=== PATIENT | female | born 1940 | race Caucasian/White ===

== ENCOUNTER 2017-06-04 09:57 | Outpatient (CLI) | payer MEDICARE, BC ==
--- NOTE | 2017-06-04 13:19 | MRI ---
MRI THORACIC SPINE NONCONTRAST: History: Back pain. Radiation to left shoulder. FINDINGS: The spinal cord throughout the cervical levels has a normal appearance without evidence of compressio n, expansion, or abnormal signal. Vertebral body height and alignment are maintained. Scattered heman giomas are apparent within the bone marrow. Disc hydration is maintained. The central canal and neura l foramina are patent. Images including the abdomen show large lobular cysts arising from the cortex of the liver. IMPRESSION: 1. No abnormalities of the thoracic spine are demonstrated to explain back pain. POS: [facility]
== END 2017-06-04 09:58 | disposition home or self-care (01) ==
LOC: SCSMRI 09:57
PROVIDERS: ATTEND Nurse Practitioner Family
DX: M54.14 Radiculopathy, thoracic region (principal)
CPT/HCPCS: 72146

== ENCOUNTER 2017-12-31 05:22 | Observation (INO) | payer MEDICARE, BC ==
[2017-12-31 05:55] LABS: #Eosinphils 0.2 thou/uL (0.0-0.7); #Lymphocytes 2.8 thou/uL (1.20-3.40); %Basophils 0.6 % (0.0-1.0); %Eosinophils 2.9 % (0.0-10.0); %Lymphocytes 40.1 % (21.0-51.0); %Monocytes 14.7 % (0.0-10.0); %Neutrophils 41.8 % (42.0-75.0); Hemoglobin 14.6 g/dL (12.0-16.0); Mean Corpuscular HGB CONC 34.2 g/dL (32.0-36.0); Mean Corpuscular Hemoglobin 30.9 pg (27.0-31.0); Mean Corpuscular Volume 90.3 fL (78.0-98.0); Mean Platelet Volume 7.7 fL (7.4-10.4); Platelet Count 176 thou/uL (130-400); RBC Distribution Width 11.8 % (11.5-14.5); Red Blood Cell (RBC) Count 4.71 mill/uL (4.20-5.40); White Blood Cell (WBC) Count 7.1 thou/uL (4.8-10.8)
[2017-12-31 06:06] LABS: INR-International Normal Ratio 1.2; Prothrombin Time 14.8 SEC (12.0-14.7)
[2017-12-31 06:07] LABS: PTT 29.7 SEC (22.9-36.1)
[2017-12-31 06:16] LABS: ALT (SGPT) 34 U/L (8-55); AST (SGOT) 28 U/L (5-34); Alkaline Phosphatase 81 U/L (40-150); Anion Gap 11 mmol/L (10-20); BUN (Urea Nitrogen) 17 mg/dL (9.8-20.1); Bilirubin, Total 0.4 mg/dL (0.2-1.2); CK (CPK) 68 U/L (29-168); Calc. Creatinine Clearance 0 mL/min (70-130); Calcium 8.5 mg/dL (7.8-10.44); Carbon Dioxide 23 mmol/L (23-31); Chloride 110 mmol/L (98-107); Estimated GFR-MDRD 59; Globulin 2.7 g/dL (2.4-3.5); Glucose 143 mg/dL (83-110); Lipase 18 U/L (8-78); Potassium 3.5 mmol/L (3.5-5.1); Protein, Total 6.7 g/dL (6.0-8.3); Sodium 140 mmol/L (136-145)
[2017-12-31] MEDS ORDERED: Ondansetron HCl/PF 4 MG/2 ML Vial ONE (06:17)
[2017-12-31 06:20] LABS: Troponin I Less than 0.010 ng/mL (< 0.028)
--- NOTE | 2017-12-31 07:45 | CT ---
PRELIMINARY REPORT/[facility]/EMERGENTY AFTER-HOURS PROCEDURE CT Cervical Spine Without Intravenous Contrast EXAM DATE/TIME: Exam ordered 12/31/2017 5:49 AM CLINICAL HISTORY: 77 years old, female; Injury or trauma; Fall; Initial encounter; Abrasion; Patient HX: No previous ex ams; Er 3; F77 reports to ed via ems C/O syncopal episode. Ems reports x40 minutes ago patient went t o restroom and had a witnessed syncopal episode. Ems reports patient fell and hit head on wall about x2 feet in front of her. Pt reports loc, unaware of how long it lasted. Pt denies cp at time of syncopal episode. TECHNIQUE: Axial computed tomography images of the cervical spine without intravenous contrast. Coronal and sagittal reformatted images were created and reviewed. COMPARISON: No relevant prior studies available. FINDINGS: Vertebrae: No acute cervical spine fracture is demonstrated. Discs/spinal canal/neural foramina: The vertebral foramen are grossly intact. No spinal canal stenosi s. Soft tissues: Normal. Lung apices: Unremarkable as visualized. IMPRESSION: No acute cervical spine fracture is demonstrated. Thank you for allowing us to participate in the care of your patient. Dictated and Authenticated by: Deepak Light MD 12/31/2017 6:07 AM Central Time ([place] & [place]) CT CERVICAL SPINE: FINAL REPORT: I agree with the preliminary report given by Dr. Deepak Light of [facility]. POS: [facility]
--- NOTE | 2017-12-31 07:47 | CT ---
PRELIMINARY REPORT/[facility]/EMERGENTY AFTER-HOURS PROCEDURE CT Maxillofacial Without Intravenous Contrast EXAM DATE/TIME: Exam ordered 12/31/2017 5:47 AM CLINICAL HISTORY: 77 years old, female; Injury or trauma; Fall; Initial encounter; Abrasion; Forehead; Patient HX: No p revious exams; Er 3; F77 reports to ed via ems C/O syncopal episode. Ems reports x40 minutes ago gab ent went to restroom and had a witnessed syncopal episode. Ems reports patient fell and hit head on wall about x2 feet in front of her. Pt reports loc, unaware of how long it lasted. Pt denies cp at time of syncopal episode. TECHNIQUE: Axial computed tomography images of the face without intravenous contrast. Coronal and sagittal reformatted images were created and reviewed. COMPARISON: No relevant prior studies available. FINDINGS: Bones/joints: There is acute inferior RIGHT nasal bone fracture with mild posterior angulation and ov erlying soft tissue swelling. Soft tissues: There is frontal scalp soft tissue hematoma measuring approximately 3 x 1 cm. Orbits: Normal. Sinuses: Normal. No air-fluid levels. IMPRESSION: 1. There is acute inferior RIGHT nasal bone fracture with mild posterior angulation and overlying sof t tissue swelling. 2. There is frontal scalp soft tissue hematoma measuring approximately 3 x 1 cm. Thank you for allowing us to participate in the care of your patient. Dictated and Authenticated by: Deepak Light MD 12/31/2017 6:13 AM Central Time ([place] & [place]) CT FACIAL BONES WITH CORONAL AND SAGITTAL REFORMATIONS: FINAL REPORT: I agree with the preliminary report given by Dr. eDepak Light of [facility]. POS: [facility]
--- NOTE | 2017-12-31 07:48 | CT ---
PRELIMINARY REPORT/[facility]/EMERGENTY AFTER-HOURS PROCEDURE CT Head Without Intravenous Contrast EXAM DATE/TIME: Exam ordered 12/31/2017 5:51 AM CLINICAL HISTORY: 77 years old, female; Injury or trauma; Fall; Initial encounter; Abrasion; Face; Patient HX: No previ ous exams; Er 3; F77 reports to ed via ems C/O syncopal episode. Ems reports x40 minutes ago patient went to restroom and had a witnessed syncopal episode. Ems reports patient fell and hit head on wall about x2 feet in front of her. Pt reports loc, unaware of how long it lasted. Pt denies cp at time of syncopal episode. TECHNIQUE: Axial computed tomography images of the head/brain without intravenous contrast. COMPARISON: No relevant prior studies available. FINDINGS: Brain: Normal. No hemorrhage. No significant white matter disease. No edema. Ventricles: Normal. No ventriculomegaly. Bones/joints: There is acute fracture of the nasal bone with mild posterior displacement. Soft tissues: There is a 2.9 x 0.7 cm frontal scalp hematoma. Sinuses: Unremarkable as visualized. No acute sinusitis. Mastoid air cells: Unremarkable as visualized. No mastoid effusion. IMPRESSION: 1. No acute intracranial hemorrhage. 2. There is acute fracture of the nasal bone with mild posterior displacement. Thank you for allowing us to participate in the care of your patient. Dictated and Authenticated by: Deepak Light MD 12/31/2017 6:10 AM Central Time ([place] & [place]) FINAL REPORT CT BRAIN WITHOUT CONTRAST: I agree with the preliminary report given by Dr. Deepak Light of [facility]. POS: [facility]
[2017-12-31] MEDS ORDERED: Ondansetron ODT 4 MG TAB PO PRN (08:45)
[2017-12-31] MEDS ORDERED: hydrALAZINE 20 MG/ML VIAL SLOW IVP PRN (08:45)
[2017-12-31] MEDS ORDERED: Senokot 8.6 MG TAB PO PRN (08:45)
[2017-12-31] MEDS ORDERED: Zolpidem Tartrate 5 MG TAB PO PRN (08:45)
[2017-12-31] MEDS ORDERED: Mag-Al 1200 mg/1200 mg/30 ML UDCUP PO PRN (08:45)
[2017-12-31] MEDS ORDERED: Chloraseptic Spray 180 ml Bottle PO PRN (08:45)
[2017-12-31] MEDS ORDERED: Milk Of Magnesia 30 ML UDCUP PO PRN (08:45)
[2017-12-31] MEDS ORDERED: Sodium Chloride 0.65% Nasal 44 ML BOT EA NARE PRN (08:45)
[2017-12-31] MEDS ORDERED: Eucerin (Mineral Oil/Petrolatum,White) 30 gm Jar TOP PRN (08:45)
[2017-12-31] MEDS ORDERED: Ondansetron HCl/PF 4 MG/2 ML Vial IVP PRN (08:45)
[2017-12-31] MEDS ORDERED: Loratadine 10 MG TAB PO PRN (08:45)
[2017-12-31] MEDS ORDERED: Artificial Tears 18 DROP/0.9 ML EA EYE PRN (08:45)
[2017-12-31] MEDS ORDERED: Loperamide HCl 2 MG CAP PO PRN (08:45)
[2017-12-31] MEDS ORDERED: Diabetic Tussin 200 MG/10 ML UDCUP PO PRN (08:45)
[2017-12-31] MEDS ORDERED: HYDROcodone/Acetaminophen 5/325 mg Tablet PO PRN (08:45)
[2017-12-31 09:54] LABS: CKMB 1.9 ng/mL (0-6.6)
[2017-12-31 10:00] LABS: Troponin I Less than 0.010 ng/mL (< 0.028)
[2017-12-31] MEDS: Sodium Chloride 0.9% 1,000 ML IV SCH ×2 (10:33→23:57)
[2017-12-31] MEDS: Famotidine 20 MG TAB PO SCH ×2 (10:33→21:02)
[2017-12-31] MEDS ORDERED: ALPRAZolam 0.25 MG TAB PO PRN (10:46)
--- NOTE | 2017-12-31 11:17 | HP ---
PRIMARY CARE PHYSICIAN: Dr. Donnie Veloz. REASON FOR ADMISSION: Syncope. HISTORY OF PRESENT ILLNESS: A 77-year-old female who has chronic tinnitus and intermittent vertigo s ymptoms which is related with position change, who was experiencing diarrhea since Friday during nigh t time. On Friday, patient ate Polish food in a restaurant and during nighttime she ate frozen pizz a. The patient's was also experiencing mild upset in stomach, but patient started having exp losive recurrent diarrhea during Friday night. Patient did not have any pus or blood in stool. She was having crampy abdominal pain. She did not have any fever or chills. She completely cleared out on Friday night. On Friday, she was not experiencing any diarrhea, but she was feeling weak. She wa s only able to drink liquids, so she did not eat on Friday. Friday, she started eating afternoon an d she started having diarrhea again. Last night, patient woke up for a bowel movement and she was fe eling dizzy, tunnel vision and black. She was feeling that she is going to pass out, but it was very rapid. She was not able to hold and she fell down and injured over nasal bruits. Per patient, she passed out for a few seconds. She did not have any shaking movement. She did not have any prior brent st pain, palpitation or after awakening, she was not experiencing any chest pain or palpitations. Sh vinay was having nasal bridge pain. She had minor bleeding from that area, but no epistaxis. She denied any headaches. She denies any focal motor or sensory symptoms. The patient's called paramedics and patient was brought to emergency room. Patient denies an y UTI symptoms. She denies any fever or chills. She denies any similar problem in past. REVIEW OF SYSTEMS: The following complete review of systems was negative, unless otherwise mentioned in the HPI or below: Constitutional: Weight loss or gain, ability to conduct usual activities. Skin: Rash, itching. Eyes: Double vision, pain. ENT/Mouth: Nose bleeding, neck stiffness, pain, tenderness. Cardiovascular: Palpitations, dyspnea on exertion, orthopnea. Respiratory: Shortness of breath, wheezing, cough, hemoptysis, fever or night sweats. Gastrointestinal: Poor appetite, abdominal pain, heartburn, nausea, vomiting, constipation, or diarr hea. Genitourinary: Urgency, frequency, dysuria, nocturia. Musculoskeletal: Pain, swelling. Neurologic/Psychiatric: Anxiety, depression. Allergy/Immunologic: Skin rash, bleeding tendency. Please see my HPI for pertinent positive and negative. All other review of systems reviewed and nega tive except as mentioned in the HPI. ALLERGIES: MACROBID. CURRENT HOME MEDICATIONS: Amlodipine 5 mg p.o. daily, vitamin D3 1000 units p.o. daily, Pristiq 50 m g p.o. daily, conjugated estrogen 0.5 mg p.o. daily, Synthroid 50 mcg p.o. daily, Toprol-XL 100 mg p. o. daily, omeprazole 20 mg p.o. daily, pravastatin 40 mg p.o. at bedtime, Coenzyme Q10 100 mg p.o. da brandon, Xanax 0.25 mg p.o. t.i.d. p.r.n. EMERGENCY ROOM COURSE: Patient was given 1 liter IV fluid and Zofran. PAST MEDICAL HISTORY: Hypertension, dyslipidemia, benign positional vertigo, hypothyroidism, gastroe sophageal reflux disease. PAST PSYCHIATRIC HISTORY: Anxiety and depression. PAST SURGICAL HISTORY: Hysterectomy, bilateral ankle surgery, tonsillectomy, cataract surgery and ov concepcion cyst removed. SOCIAL HISTORY: Patient is and lives at home with her . No history of tobacco, alcoh ol or illicit drug abuse. FAMILY HISTORY: No strong family history of premature coronary artery disease, stroke or cancer. PHYSICAL EXAMINATION: VITAL SIGNS: On arrival, blood pressure 149/82, pulse 66, respiratory rate 12, temperature 98.1, sat uration 98% on room air, weight 58.9 kilograms. GENERAL: Patient is currently alert, awake, no obvious acute distress. HEAD: Normocephalic though patient does have bruits over frontal head. EYES: Pupils round, reactive to light. Extraocular muscle intact. No nystagmus. ENT: The patient does have nasal fissure. Laceration about 1 cm. No epistaxis, ear examination nor mal. Throat examination normal. NECK: Supple, no JVD, no thyromegaly, no carotid bruit. LUNGS: Clear to auscultation without any rhonchi or rales. CARDIAC: S1 and S2 regular without any murmur. ABDOMEN: Soft, bowel sounds present, nontender, nondistended. No organomegaly, no mass, no suprapub ic tenderness. BACK: Examination unremarkable, no CVA tenderness. EXTREMITIES: Upper extremity passive movements of all joints are normal. Lower extremities: No lino ma. Good distal pulsation. SKIN: No skin rash. HEMATOLOGICAL SYSTEM: No lymphadenopathy. PSYCHIATRIC: Normal affect. NEUROLOGIC: The patient is alert, oriented x3. Cranial nerves II-XII intact. Motor and sensation w ithin normal limits, plantar bilateral flexor. PSYCHIATRIC: Normal affect. IMAGING DATA AND SIGNIFICANT LABORATORY DATA: EKG showing normal sinus rhythm within normal limits. CT brain showing no acute intracranial process, but it showed acute fracture of nasal bone with mild posterior displacement. Facial bone CT scan showed acute right inferior nasal bone fracture. CT ce rvical spine negative for any fracture or dislocation. CBC: WBC 7.1, hemoglobin 14.6, platelet 176. INR 1.2. BMP: Sodium 140, potassium 3.5, chloride 110, carbon dioxide 23, BUN 17, creatinine 0.93 , glucose 143, calcium 8.5. LFT: AST 28, ALT 34, alkaline phosphatase 81, albumin 4.0, lipase 18. Cardiac enzymes negative x2. Lactic acid 1.4. ASSESSMENT AND PLAN/IMPRESSION: 1. Syncope, most likely orthostatic hypotension due to volume depletion secondary to diarrhea. Othe r etiology needs to be excluded. We will keep on telemetry floor. We will check orthostatic vitals to rule out orthostatic hypotension. We will hold on antihypertensive medication unless blood pressu re is very high. We will continue with IV fluid with NS at 100 mL per hour. Telemetry monitoring to rule out any arrhythmia. Echocardiography to assess ejection fraction and other structural abnormal ity. PT evaluation. 2. Diarrhea, most likely viral gastroenteritis versus food born related infection. We will check st ool for infection workup. At this point, no need of antibiotic therapy. We will provide probiotics. The patient needs hydration and supportive treatment. 3. Chronic dizziness with tinnitus, suspecting benign positional vertigo as well. We will continue with Antivert 25 mg t.i.d. p.r.n. 4. Hypertension. Blood pressure is going up and that is why we will start antihypertensive medicati on with amlodipine 5 mg p.o. daily and Toprol-XL 100 mg p.o. daily. 5. Gastroesophageal reflux disease. We will continue Pepcid 20 mg p.o. b.i.d. 6. Dyslipidemia. Continue pravastatin 40 mg p.o. at bedtime. 7. Anxiety and depression. Continue Xanax 0.25 mg t.i.d. p.r.n. and Pristiq 50 mg p.o. daily. 8. Hypothyroidism. Continue 50 mcg p.o. daily. 9. Deep venous thrombosis prophylaxis not needed because we are expecting discharge in 24 hours. 10. Gastrointestinal prophylaxis, Pepcid 20 mg p.o. b.i.d. 11. Code status: The patient is FULL CODE. Patient's is surrogate decision maker. DISPOSITION AND PLAN: Based on clinical course.
[2017-12-31 12:39] LABS: CKMB 2.6 ng/mL (0-6.6); Troponin I Less than 0.010 ng/mL (< 0.028)
[2017-12-31 15:14] LABS: Bilirubin Negative (Negative); Blood, Urine Negative (Negative); Clarity CLEAR (Clear); Glucose, Urine (Dipstick) Negative (Negative); Leukocyte Trace (Negative); Nitrite Negative (Negative); Protein, Urine (Dipstick) Negative (Neg-Trace); Specific Gravity, Urine 1.005 (1.002-1.036); Urobilinogen 0.2 mg/dL (0.2-1.0); pH, Urine 5.5 (5.0-9.0)
[2017-12-31 15:17] LABS: Bacteria/HPF None Seen HPF (None Seen); Hyaline Casts/LPF 0-3 HYALINE CAST LPF (0-3 Hyaline); Pathc Cast-AUWi Flag 0.29 (0-2.49); Squamous Epithelial 0-3 HPF (0-3); WBC/HPF 0-3 HPF (0-3)
[2017-12-31 15:22] LABS: Yeast-AUWi Flag 37.6 (0-25.0)
[2017-12-31 15:29] LABS: RBC/HPF None Seen HPF (0-3); Yeast-All Forms None Seen HPF (None Seen)
[2017-12-31] MEDS: Acetaminophen 325 MG TAB PO PRN ×2 (15:56→21:02)
[2017-12-31] MEDS ORDERED: Pravastatin Sodium 40 MG TAB PO SCH (21:00)
[2017-12-31] MEDS ORDERED: Atorvastatin Calcium 10 MG TAB PO SCH (21:00)
[2017-12-31] MEDS: Meclizine HCl 25 MG TAB PO PRN (21:02)
[2018-01-01 05:39] LABS: #Basophils 0.1 thou/uL (0.0-0.2); #Eosinphils 0.1 thou/uL (0.0-0.7); #Lymphocytes 2.2 thou/uL (1.20-3.40); #Monocytes 0.7 thou/uL (0.11-0.59); #Neutrophils 3.1 thou/uL (1.40-6.50); %Basophils 1.1 % (0.0-1.0); %Eosinophils 1.9 % (0.0-10.0); %Lymphocytes 35.7 % (21.0-51.0); %Monocytes 11.1 % (0.0-10.0); %Neutrophils 50.3 % (42.0-75.0); Hemoglobin 13.4 g/dL (12.0-16.0); Mean Corpuscular HGB CONC 32.8 g/dL (32.0-36.0); Mean Corpuscular Hemoglobin 29.7 pg (27.0-31.0); Mean Corpuscular Volume 90.7 fL (78.0-98.0); Mean Platelet Volume 8.1 fL (7.4-10.4); Platelet Count 176 thou/uL (130-400); White Blood Cell (WBC) Count 6.1 thou/uL (4.8-10.8)
[2018-01-01] MEDS ORDERED: Levothyroxine Sodium 50 MCG TAB PO SCH (06:00)
[2018-01-01 06:22] LABS: Anion Gap 11 mmol/L (10-20); BUN (Urea Nitrogen) 7 mg/dL (9.8-20.1); Calc. Creatinine Clearance 82 mL/min (70-130); Calcium 8.5 mg/dL (7.8-10.44); Carbon Dioxide 21 mmol/L (23-31); Chloride 113 mmol/L (98-107); Estimated GFR-MDRD 79; Glucose 89 mg/dL (83-110); Potassium 3.5 mmol/L (3.5-5.1); Sodium 141 mmol/L (136-145)
[2018-01-01] MEDS ORDERED: Estrogens, Conjugated 0.3 MG TAB PO SCH (09:00)
[2018-01-01] MEDS ORDERED: Non-Formulary Item 1 EACH (Ubidecarenone [Co Q-10] 100 MG) PO SCH (09:00)
[2018-01-01] MEDS ORDERED: Ubidecarenone 50 MG CAP PO SCH (09:00)
[2018-01-01] MEDS ORDERED: Amlodipine 5 MG TAB PO SCH (09:00)
[2018-01-01] MEDS ORDERED: Levothyroxine Sodium 25 MCG TAB PO SCH (09:00)
[2018-01-01] MEDS ORDERED: Saccharomyces boulardii 250 MG CAP PO SCH (09:00)
[2018-01-01] MEDS ORDERED: Non-Formulary Item 1 EACH (Cholecalciferol (Vitamin D3) [Vitamin D] 1,000 UNIT) PO SCH (09:00)
[2018-01-01] MEDS ORDERED: Non-Formulary Item 1 EACH (Desvenlafaxine Succinate [Pristiq] 50 MG) PO SCH (09:00)
[2018-01-01] MEDS ORDERED: Venlafaxine HCl XR 75 MG CAP PO SCH (09:00)
--- NOTE | 2018-01-01 10:07 | DIS ---
DATE OF ADMISSION: 12/31/2017 DATE OF DISCHARGE: 01/01/2018 PRIMARY CARE PHYSICIAN: Donnie Veloz M.D. DISCHARGE DISPOSITION: Home. PRIMARY DISCHARGE DIAGNOSES: Syncope due to orthostatic hypotension and acute diarrhea, likely viral . SECONDARY DISCHARGE DIAGNOSES: Chronic benign paroxysmal positional vertigo, obesity with BMI of 30, anxiety and depression, hypertension, dyslipidemia. PRIMARY PROCEDURE/OPERATION: None. RADIOLOGICAL INVESTIGATION: CT brain was negative for any acute intracranial process, but it did germania w nasal bone fracture. Facial bone CT scan also confirmed nasal bone fracture. Cervical spine CT sc an was negative for any fracture or dislocation. SIGNIFICANT LABORATORY DATA: WBC 6.1, hemoglobin 13.4, platelet 176,000. INR 1.2. Sodium 141, crea tinine 0.72, calcium 8.5. Cardiac enzymes negative x3. LFT normal. Urinalysis unremarkable. DISCHARGE MEDICATIONS: Antivert 25 mg p.o. q.8 hourly p.r.n., Xanax 0.25 mg p.o. t.i.d., Norvasc 5 m g p.o. daily, vitamin D3 1000 unit p.o. daily, Pristiq 50 mg p.o. daily, conjugated estrogen one tabl et daily, Synthroid 50 mcg p.o. daily, Toprol XL 100 mg p.o. daily, Prilosec 20 mg p.o. daily p.r.n., pravastatin 40 mg p.o. at bedtime, Coenzyme Q10 100 mg p.o. daily. CONTRAINDICATIONS: None. CODE STATUS: Full code. INPATIENT CONSULTANTS: None. ALLERGIES: MACROBID. DISCHARGE PLAN: Post hospital, the patient is discharged to home and she is instructed to follow up with primary care physician in 1 week. The patient is also instructed to make appointment with the E NT doctor for nasal bone fracture in 2-3 days after discharge. The patient already has followup appo intment at [facility] for her brain MRI tomorrow. HOSPITAL COURSE: A 77-year-old female who has recurrent benign positional paroxysmal vertigo with ti nnitus. This time, she came to ER with syncopal episode. For the last few days, the patient was hav ing diarrhea at home. She felt dizzy and rapidly passed out without any protection, but she was feel ing that she will pass out. She did have minor injury to head. She had raccoon eye. She had nasal bone fracture on CT head and CT facial bones. Cervical spine CT scan was negative. We presumed orth ostatic hypotension from volume depletion secondary to diarrhea. The patient was admitted to telemetry floor. She had negative EKG, normal physical examination, norm al cerebellar sign. She had subsequently negative cardiac enzyme. She was experiencing dizziness wi th ambulation because of her benign positional vertigo. I did a cerebellar examination and it was un remarkable. We are still suspecting peripheral etiology for her benign positional vertigo, but the p manda already has appointment for MRI tomorrow at [facility] and that is why family member wanted t o continue that appointment there and they will do MRI there. Family member is notified to make appo intment with primary care physician and neurologist as well as ENT doctor after discharge. The patient is seen and examined. All review of system reviewed and negative. PHYSICAL EXAMINATION: VITAL SIGNS: Currently, temperature 98.3, pulse 74, respiratory rate 15, saturation 96% on room air, blood pressure 143/66, weight 170 pounds. GENERAL: The patient is currently alert, awake, in no obvious acute distress. HEAD: Normocephalic. The patient does have mild forehead bruise as well as mild raccoon eye on both sides. NECK: Supple. No JVD. LUNGS: Clear to auscultation without any rhonchi or rales. CARDIAC: S1, S2 regular without any murmur. ABDOMEN: Soft and benign without any tenderness. EXTREMITIES: No edema. NEUROLOGIC: Nonfocal examination. The patient is medically stable for discharge today.
[2018-01-01] MEDS: Meclizine HCl 25 MG TAB PO PRN (10:30)
[2018-01-01] MEDS: Famotidine 20 MG TAB PO SCH (10:30)
[2018-01-01 10:34] VITALS: TEMP 97.2
[2018-01-01 11:45] VITALS: BP 168/77
[2018-01-01 12:21] VITALS: BMI 30.1
[2018-01-01] MEDS: Sodium Chloride 0.9% 1,000 ML IV SCH (14:28)
--- NOTE | 2018-01-01 16:38 | MRI ---
MRI OF BRAIN WITHOUT CONTRAST: 01/01/18 HISTORY: Syncope. Patient fell face first on the ground. Vertigo. COMPARISON: None. TECHNIQUE: Brain MRI is performed without intravenous gadolinium administration. Multisequential, multiplanar im aging is performed. FINDINGS: No hemorrhage on the axial gradient echo sequence. Appropriate T1 marrow signal intensity of the calvarium. Midline brain parenchymal structures are unr emarkable. No parenchymal mass, mass effect or midline shift. Brain volume, age appropriate. Cortical cassidy-white matter differentiation is preserved. Ventricles and sulci are patent and symmetric. Central arterial flow voids are maintained. Absent restricted diffusion. No significant white matter hyperintensity on the axial T2 FLAIR sequence. Adequate aeration of the s inuses and mastoid air cells. Visualized internal auditory canal and inner ear structures are unremar kable and symmetric. IMPRESSION: 1. Absent restricted diffusion. No acute infarct. 2. No acute intracranial process. POS: [facility]
--- NOTE | 2018-01-10 13:18 | EKG ---
Test Reason : Blood Pressure : / mmHG Vent. Rate : 066 BPM Atrial Rate : 066 BPM P-R Int : 170 ms QRS Dur : 096 ms QT Int : 456 ms P-R-T Axes : 065 053 046 degrees QTc Int : 478 ms Normal sinus rhythm Normal ECG Confirmed by BROOKLYN LINDA ([id number]), script editor SHAHNAZ ART ([id number]) on 01/10/2018 1:18:13 PM Referred By: Confirmed By:BROOKLYN LINDA
== END 2018-01-01 18:24 | disposition home or self-care (01) ==
LOC: ERS 05:22 → 2SW 08:35 → 2NO 13:39
PROVIDERS: ADMIT Hospitalist; ATTEND Hospitalist
DX: I95.1 Orthostatic hypotension (principal); R19.7 Diarrhea, unspecified; H93.19 Tinnitus, unspecified ear; H81.10 Benign paroxysmal vertigo, unspecified ear; E78.5 Hyperlipidemia, unspecified; I10 Essential (primary) hypertension; E03.9 Hypothyroidism, unspecified; K21.9 Gastro-esophageal reflux disease without esophagitis; F41.8 Other specified anxiety disorders; E66.9 Obesity, unspecified; Z68.30 Body mass index [BMI] 30.0-30.9, adult; Z79.899 Other long term (current) drug therapy; Z88.1 Allergy status to other antibiotic agents
CPT/HCPCS: 70450; 70486; 70551; 72125; 80048; 80053; 81001; 82550; 82553 ×2; 82962; 83605; 83690; 84484 ×2; 85025 ×2; 85610; 85730; 93005; 93306; 96361 ×3; 96374; 97116; 98960; 99285; G0378 ×2; G8978; G8979; 36415; 36416; A4216; J2405

== ENCOUNTER 2018-03-19 11:17 | Outpatient (CLI) | payer MEDICARE, BC | END 2018-03-19 11:18 | disposition home or self-care (01) | LOC: BICMAMMO 11:17 | PROVIDERS: ATTEND Internal Medicine | DX: Z12.31 Encounter for screening mammogram for malignant neoplasm of breast (principal); Z85.3 Personal history of malignant neoplasm of breast | CPT/HCPCS: 77063; 77067 ==

== ENCOUNTER 2019-03-22 12:55 | Outpatient (CLI) | payer MEDICARE, BC ==
--- NOTE | 2019-03-22 13:34 | MMO ---
Bilateral MAMMO Bilat Screen [facility]. CLINICAL HISTORY: Patient is 79 years old and is seen for screening. The patient has no family history of breast cancer. The patient has a history of left Excisional Biopsy in 1991 - benign. VIEWS: The views performed were: bilateral craniocaudal with tomosynthesis and bilateral mediolateral oblique with tomosynthesis. FILMS COMPARED: The present examination has been compared to prior imaging studies performed at [facility] on 02/27/2015, 03/07/2016, 03/18/2017 and 03/19/2018. This study has been interpreted with the assistance of computer-aided detection. MAMMOGRAM FINDINGS: There are scattered fibroglandular densities. Finding 1: There are stable post operative changes seen in the left breast. Finding 2: There are stable benign appearing calcifications seen in both breasts. There are no suspicious masses, suspicious calcifications, or new areas of architectural distortion. IMPRESSION: THERE IS NO MAMMOGRAPHIC EVIDENCE OF MALIGNANCY. A ROUTINE FOLLOW-UP MAMMOGRAM IN 1 YEAR IS RECOMMENDED. THE RESULTS OF THIS EXAM WERE SENT TO THE PATIENT. ACR BI-RADS Category 2 - Benign finding MAMMOGRAPHY NOTE: 1. A negative mammogram report should not delay a biopsy if a dominant of clinically suspicious mass is present. 2. Approximately 10% to 15% of breast cancers are not detected by mammography. 3. Adenosis and dense breasts may obscure an underlying neoplasm. Reported by: LEI PULIDO MD Electonically Signed: [id number]
== END 2019-03-22 12:56 | disposition home or self-care (01) ==
LOC: BICMAMMO 12:55
PROVIDERS: ATTEND Internal Medicine
DX: Z12.31 Encounter for screening mammogram for malignant neoplasm of breast (principal); Z91.89 Other specified personal risk factors, not elsewhere classified
CPT/HCPCS: 77063; 77067

== ENCOUNTER 2020-12-07 10:53 | Outpatient (CLI) | payer MEDICARE, BC | END 2020-12-07 10:54 | disposition home or self-care (01) | LOC: BICMAMMO 10:53 | PROVIDERS: ATTEND Internal Medicine | DX: Z12.31 Encounter for screening mammogram for malignant neoplasm of breast (principal); Z91.89 Other specified personal risk factors, not elsewhere classified | CPT/HCPCS: 77063; 77067 ==

== ENCOUNTER 2021-09-06 14:34 | Inpatient (IN) | payer MEDICARE, BC ==
[2021-09-06 15:23] LABS: Mean Corpuscular HGB CONC 32.2 g/dL (32.0-36.0); Mean Corpuscular Hemoglobin 30.8 pg (27.0-31.0); Mean Corpuscular Volume 95.7 fL (78.0-98.0); Mean Platelet Volume 6.9 fL (7.4-10.4); Platelet Count 182 thou/uL (130-400); RBC Distribution Width 12.4 % (11.5-14.5); Red Blood Cell (RBC) Count 4.88 mill/uL (4.20-5.40); White Blood Cell (WBC) Count 8.6 thou/uL (4.8-10.8)
[2021-09-06 15:39] LABS: ALT (SGPT) 22 U/L (8-55); AST (SGOT) 20 U/L (5-34); Albumin 4.1 g/dL (3.4-4.8); Alkaline Phosphatase 69 U/L (40-110); Anion Gap 14 mmol/L (10-20); BUN (Urea Nitrogen) 13 mg/dL (9.8-20.1); Bilirubin, Total 0.8 mg/dL (0.2-1.2); Calc. Creatinine Clearance 0 mL/min (70-130); Calcium 9.2 mg/dL (7.8-10.44); Carbon Dioxide 21 mmol/L (23-31); Chloride 104 mmol/L (98-107); Globulin 2.9 g/dL (2.4-3.5); Glucose 155 mg/dL (83-110); Potassium 4.2 mmol/L (3.5-5.1); Sodium 135 mmol/L (136-145)
[2021-09-06 15:44] LABS: MDiff Complete? YES
[2021-09-06 15:45] LABS: Band 3 % (5-11); Lymphocytes 21 % (21-51); Monocytes 6 % (0-10); Neutrophil 42 % (42-75); Platelet Morphology Comment Appears Adequate; Polychromasia SLIGHT = 2-3 cells (100X) (0-2/hpf); Reactive Lymphocytes 26 % (0-10); Stomatocytes SLIGHT = 2-5 cells (100X) (0-1/hpf)
[2021-09-06 17:14] LABS: Bilirubin Negative (Negative); Blood, Urine Negative (Negative); Clarity Clear (Clear); Glucose, Urine (Dipstick) Normal (Negative); Ketone, Urine Negative (Negative); Leukocyte Negative Leu/uL (Negative); Nitrite Negative (Negative); Protein, Urine (Dipstick) Negative (Neg-Trace); Specific Gravity, Urine 1.006 (1.002-1.036); Urobilinogen Normal mg/dL (Less than 2); pH, Urine 5.5 (5.0-9.0)
[2021-09-06 18:47] LABS: Troponin I Less than 0.010 ng/mL (< 0.028)
[2021-09-06 20:31] VITALS: BMI 29.5
[2021-09-06 21:39] LABS: Troponin I Less than 0.010 ng/mL (< 0.028)
[2021-09-07] MEDS ORDERED: Aspirin/APAP/Caffeine Tab (Excedrin Migraine) PO PRN (00:29)
[2021-09-07] MEDS ORDERED: clonazePAM 0.5 MG TAB PO PRN (00:38)
[2021-09-07 00:46] LABS: SARS-CoV-2 PCR by NAA Not Detected (NotDetected)
[2021-09-07] MEDS ORDERED: Ondansetron PF 4 MG/2 ML Vial IVP PRN (01:42)
[2021-09-07] MEDS: Sodium Chloride 0.9% 1,000 ML IV SCH ×2 (02:13→15:39)
[2021-09-07 04:35] LABS: Hemoglobin 13.8 g/dL (12.0-16.0); Mean Corpuscular HGB CONC 33.2 g/dL (32.0-36.0); Mean Corpuscular Hemoglobin 31.4 pg (27.0-31.0); Mean Corpuscular Volume 94.5 fL (78.0-98.0); Mean Platelet Volume 6.9 fL (7.4-10.4); Platelet Count 156 thou/uL (130-400); RBC Distribution Width 12.4 % (11.5-14.5); White Blood Cell (WBC) Count 6.9 thou/uL (4.8-10.8)
[2021-09-07 04:55] LABS: Anion Gap 13 mmol/L (10-20); BUN (Urea Nitrogen) 15 mg/dL (9.8-20.1); Calc. Creatinine Clearance 73 mL/min (70-130); Calcium 8.9 mg/dL (7.8-10.44); Carbon Dioxide 24 mmol/L (23-31); Chloride 107 mmol/L (98-107); Glucose 92 mg/dL (83-110); Magnesium 2.2 mg/dL (1.6-2.6); Potassium 3.6 mmol/L (3.5-5.1); Sodium 140 mmol/L (136-145)
[2021-09-07 05:13] LABS: Band 1 % (5-11); Eosinophils 2 % (0-10); Lymphocytes 44 % (21-51); MDiff Complete? YES; Monocytes 4 % (0-10); Neutrophil 40 % (42-75); Reactive Lymphocytes 9 % (0-10)
[2021-09-07] MEDS: Levothyroxine Sodium 50 MCG TAB PO SCH (06:13)
[2021-09-07] MEDS: Cholecalciferol 1,000 UNITS (25 MCG) TAB PO SCH (08:24)
[2021-09-07] MEDS: Estradiol 1 MG TAB PO SCH (08:25)
[2021-09-07] MEDS: Venlafaxine HCl XR 150 MG CAP PO SCH (08:26)
[2021-09-07] MEDS: Acetaminophen 325 MG TAB PO PRN ×2 (15:50→21:30)
[2021-09-07] MEDS ORDERED: Atorvastatin Calcium 10 MG TAB PO SCH (21:00)
[2021-09-07] MEDS ORDERED: Amlodipine 5 MG TAB PO SCH (21:00)
[2021-09-07] MEDS: Losartan 25 MG TAB PO SCH (21:26)
[2021-09-08] MEDS: Levothyroxine Sodium 50 MCG TAB PO SCH (04:31)
[2021-09-08] MEDS: Sodium Chloride 0.9% 1,000 ML IV SCH (04:31)
[2021-09-08] MEDS: Estradiol 1 MG TAB PO SCH (08:05)
[2021-09-08] MEDS: Losartan 25 MG TAB PO SCH (08:05)
[2021-09-08] MEDS: Cholecalciferol 1,000 UNITS (25 MCG) TAB PO SCH (08:05)
[2021-09-08] MEDS: Venlafaxine HCl XR 150 MG CAP PO SCH (08:06)
[2021-09-08 12:21] VITALS: BP 175/80; TEMP 97.8
== END 2021-09-08 12:35 | disposition home or self-care (01) | DRG 312 ==
LOC: ERS 14:34 → 2SW 17:37 → OBSVTOIN 09-07 15:25
PROVIDERS: ADMIT Internal Medicine; ATTEND Internal Medicine
DX: R55 Syncope and collapse (principal); Z20.822 Contact with and (suspected) exposure to COVID-19; Z66 Do not resuscitate; I10 Essential (primary) hypertension; E78.5 Hyperlipidemia, unspecified; E03.9 Hypothyroidism, unspecified; I44.7 Left bundle-branch block, unspecified; E78.00 Pure hypercholesterolemia, unspecified; F41.0 Panic disorder [episodic paroxysmal anxiety]; I08.0 Rheumatic disorders of both mitral and aortic valves; Z88.8 Allergy status to other drugs, medicaments and biological substances; Z79.899 Other long term (current) drug therapy; Z79.890 Hormone replacement therapy; Z90.49 Acquired absence of other specified parts of digestive tract; Z98.890 Other specified postprocedural states
CPT/HCPCS: 36415; 80048; 80053; 81003; 83735; 84443; 84484; 85025; 85379; 93005; J2405; J7050; U0003; U0005

== ENCOUNTER 2022-11-04 13:11 | Outpatient (CLI) | payer MEDICARE, BC | END 2022-11-04 13:12 | disposition home or self-care (01) | LOC: BICMAMMO 13:11 | PROVIDERS: ATTEND Family Medicine | DX: Z12.31 Encounter for screening mammogram for malignant neoplasm of breast (principal); Z91.89 Other specified personal risk factors, not elsewhere classified | CPT/HCPCS: 77063; 77067 ==

== ENCOUNTER 2024-12-15 12:59 | Outpatient (CLI) | payer MEDICARE, BC | END 2024-12-15 13:00 | disposition home or self-care (01) | LOC: SCSMRI 12:59 | PROVIDERS: ATTEND Specialist | DX: M48.062 Spinal stenosis, lumbar region with neurogenic claudication (principal); S32.019D Unspecified fracture of first lumbar vertebra, subsequent encounter for fracture with routine healing | CPT/HCPCS: 72148 ==